=== PATIENT | male | born 1930 | race Caucasian/White ===

== ENCOUNTER → 2017-12-28 | Outpatient (CLI) | payer OTHER | LOC: BMCIMAGING 10:53 → EDSTATUS 10:54 | PROVIDERS: ATTEND Internal Medicine Rheumatology | DX: M17.0 Bilateral primary osteoarthritis of knee (principal); M25.761 Osteophyte, right knee; M25.762 Osteophyte, left knee ==

== ENCOUNTER 2019-04-11 10:12 | Emergency (ER) | payer OTHER ==
--- NOTE | 2019-04-11 10:51 | EDPHY ---
H & P Time Seen by Provider: 04/11/19 10:21 HPI/ROS: CHIEF COMPLAINT: High blood pressure HISTORY OF PRESENT ILLNESS: The patient is an 88-year-old male who presents to the emergency department with high blood pressure. Patient has chronic high blood pressure. His physician Dr. Waldrop has been adjusting his medications. Last week his hydrochlorothiazide was discontinued any started Vasotec. He has a home health nurse, check on him daily. They have noticed high blood pressures and he has had his Vasotec dose increased by Dr. Waldrop. The patient states he is currently taking basal tech 40 mg orally. The patient also takes Crestor and Lasix. Today the home health nurse contacted his primary care physician's PA. He recommended the patient be seen in the emergency department. The patient denies any symptoms. He has no headache or chest pain. No shortness of breath. No abdominal pain. No nausea vomiting. No change in urine output. No increased pedal edema. The patient's only complaint is chronic right rotator cuff pain. REVIEW OF SYSTEMS: 10 systems were reveiwed and are negative with the exception of the elements mentioned in the history of present illness. Past Medical/Surgical History: Includes coronary artery disease, hypertension, high cholesterol Past surgical history: Includes CABG Social history: Patient is . He does not smoke. Smoking Status: Former smoker Physical Exam: 199/91, 73, 16, 94% on room air, afebrile GENERAL: Well-appearing, in no acute distress, alert. HEENT: Eyes normal to inspection, normal pharynx, no signs of dehydration. NECK: Normal, supple. RESPIRATORY: Clear to auscultation bilaterally, no rales, rhonchi or wheezing. CVS: Regular rate and rhythm, no rubs, murmurs, or gallops. ABDOMEN: Soft, nontender, nondistended, no organomegaly. BACK: Normal to inspection, no CVA tenderness. SKIN: Normal color, no rash, warm, dry. No pallor. EXTREMITIES: No pedal edema, no calf tenderness, no Homans sign or cords, no joint swelling. NEURO/PSYCH: Alert and oriented, normal mood and affect, normal motor sensory exam. No obvious cranial nerve deficit. Constitutional: Initial Vital Signs Temperature (C) 37 C 04/11/19 10:17 Heart Rate 73 05/15/19 10:17 Respiratory Rate 16 04/11/19 10:17 Blood Pressure 199/91 H 04/11/19 10:17 O2 Sat (%) 94 04/11/19 10:17 O2 Delivery Mode Room Air Allergies/Adverse Reactions: No Known Allergies Allergy (Unverified 04/11/19 10:14) Home Medications: Medication Instructions Recorded Crestor 03/01/16 Lasix 04/11/19 Vasotec 10 MG (*) 04/11/19 Medical Decision Making ED Course/Re-evaluation: In the emergency department I discussed possible etiologies with the patient and . I answered all his questions. At this time the patient is without complaints. Because of this I called his primary care physician, Dr. Waldrop to see if he wanted his medications adjusted. I do not feel he needed emergent blood pressure lowering in the department. I doubt hypertensive urgency or hypertensive crisis. 1117: Multiple attempts were made at contacted patient's primary care physician or on-call physician. They did not call back. The patient and his requested they be discharged and await call back at home. They did not want wait in the emergency department for their physician to call back as it often takes a few hours. I feel the patient needs additional medication to treat his ongoing hypertension but I do not feel he needs emergent reduction in the emergency department. Patient had normal capacity to make this decision. He was given warnings prior to leaving. He will return with worsening symptoms. Dr. Arora called back after the patient was discharged. She is aware of the presentation and will pass on the information to Dr. Waldrop. Differential Diagnosis: My differential includes but is not limited to hypertensive emergency, hypertensive urgency, chronic hypertension, renal dysfunction, CVA, ACS Departure - Departure Disposition: Home, Routine, Self-Care Clinical Impression: Hypertension Qualifiers: Hypertension type: unspecified Qualified Code(s): I10 - Essential (primary) hypertension Condition: Good Instructions: Hypertension in the Older Adult (ED) Additional Instructions: Return with increasing headache, chest pain, shortness of breath or any other concerns. Referrals: Adrián Waldrop MD [Primary Care Provider] - 1-2 days without fail
[2019-04-11 11:27] VITALS: BP 190/90
== END 2019-04-11 11:28 | disposition home or self-care (01) ==
DX: I10 Essential (primary) hypertension (principal)